=== PATIENT | female | born 1960 | race Caucasian/White ===

== ENCOUNTER 2020-11-07 00:47 | Emergency (ER) | payer OTHER ==
[~2020-11-07 00:47] MED LIST: IBUPROFEN800 MG PO; KEFLEX500 MG PO; MACROBID100 MG PO; MEDROL 4MG DOSEP4 MG PO; NORCO 5-325 TA1 EACH PO; PYRIDIUM200 MG PO
[2020-11-07 03:17] LABS: BILIRUBIN NEGATIVE (NEGATIVE); BLOOD 2+ Ery/uL (NEGATIVE); CLARITY CLEAR (CLEAR); COLOR YELLOW (YELLOW); GLUCOSE (U) NORMAL (NORMAL); LEUKOCYTES 1+ Leu/uL (NEGATIVE); NITRITE NEGATIVE (NEGATIVE); PROTEIN NEGATIVE (NEGATIVE); SPECIFIC GRAVITY 1.015 (1.001-1.030); UROBILINOGEN 0.2 mg/dL (0.2-1.0)
[2020-11-07 03:23] LABS: BACTERIA TRACE
[2020-11-07] MEDS ORDERED: PYRIDIUM200 M1 PO (03:59)
[2020-11-07] MEDS ORDERED: AUGMENTIN 875-1 EACH PO (03:59)
[2020-11-07] MEDS ORDERED: ONDANSETRON ODT4 MG PO (03:59)
== END 2020-11-07 04:14 | disposition home or self-care (01) ==
LOC: FER 00:47
PROVIDERS: Emergency Medicine
DX: N39.0 Urinary tract infection, site not specified (principal); Z98.51 Tubal ligation status; Z88.0 Allergy status to penicillin; Z88.8 Allergy status to other drugs, medicaments and biological substances
CPT/HCPCS: 81001; 87088; 99283

== ENCOUNTER 2021-01-25 20:28 | Emergency (ER) | payer OTHER ==
[~2021-01-25 20:28] MED LIST changes: +AUGMENTIN 875-1 EACH PO; +ONDANSETRON ODT4 MG PO; +PYRIDIUM200 M1 PO
[2021-01-25 23:53] LABS: ALBUMIN 3.9 g/dL (3.4-5.0); BILIRUBIN - TOTAL 0.3 mg/dL (0.2-1.0); BUN/CREAT RATIO (CALC) 14.9 RATIO; CREATININE 0.67 mg/dL (0.51-0.95); GLOBULIN (CALCULATION) 3.3 g/dL; HCT 39.5 % (37.0-47.0); MCH 30.6 pg (25.0-31.0); MCHC 32.9 g/dL (32.0-36.0); MCV 92.9 fL (78.0-100.0); MPV 10.3 fL (6.0-9.5); POTASSIUM 3.4 mmol/L (3.5-5.1); RBC 4.25 M/uL (4.20-5.40); RDW 13.1 % (11.5-14.0); TOTAL PROTEIN 7.2 g/dL (6.4-8.2); WBC 10.6 K/uL (4.0-10.5)
[2021-01-26 00:34] LABS: BILIRUBIN NEGATIVE (NEGATIVE); BLOOD 2+ Ery/uL (NEGATIVE); CLARITY CLEAR (CLEAR); COLOR YELLOW (YELLOW); GLUCOSE (U) NORMAL (NORMAL); LEUKOCYTES 1+ Leu/uL (NEGATIVE); NITRITE NEGATIVE (NEGATIVE); PROTEIN NEGATIVE (NEGATIVE); SPECIFIC GRAVITY 1.015 (1.001-1.030); UROBILINOGEN 0.2 mg/dL (0.2-1.0)
[2021-01-26 00:57] LABS: SQUAMOUS EPITHELIAL CELLS RARE; URINARY RBC 20-50
[2021-01-26 00:58] LABS: BACTERIA TRACE; CALCIUM OXALATE CRYSTALS TRACE
[2021-01-26] MEDS ORDERED: ZOFRAN4 M1 PO (02:34)
[2021-01-26] MEDS ORDERED: FLOMAX0.4 MG PO (02:35)
[2021-01-26] MEDS ORDERED: BACTRIM DS TAB1 EACH PO (02:35)
[2021-01-26] MEDS ORDERED: OXY-IR 5MG5 MG PO (02:36)
== END 2021-01-26 03:02 | disposition home or self-care (01) ==
LOC: FER 20:28
PROVIDERS: Emergency Medicine
DX: N13.2 Hydronephrosis with renal and ureteral calculous obstruction (principal); Z88.0 Allergy status to penicillin; Z88.8 Allergy status to other drugs, medicaments and biological substances
CPT/HCPCS: 36415; 80053; 81001; 83690; J1170; J1885; J2405; J7030